=== PATIENT | female | born 1955 | race Caucasian/White ===

== ENCOUNTER → 2019-02-08 11:07 | Outpatient (BNVA) | payer SELFPAY | PROVIDERS: PCP Nurse Practitioner Family; Visit Provider Nurse Practitioner Family | DX: I10 Essential (primary) hypertension (principal); Z68.29 Body mass index [BMI] 29.0-29.9, adult | CPT/HCPCS: 80053; 80061; 84439; 84443 ==

== ENCOUNTER → 2019-02-15 09:29 | Outpatient (BNVA) | payer OTHER, SELFPAY | PROVIDERS: PCP Nurse Practitioner Family; Visit Provider Family Medicine | DX: I10 Essential (primary) hypertension (principal) | CPT/HCPCS: 80053; 80061; 84439; 84443 ==

== ENCOUNTER 2024-12-15 08:14 | Emergency (ER) | payer MEDICARE, OTHER, SELFPAY ==
--- OUTSIDE RECORDS SUMMARY | 2024-12-15 08:22 | XMS_ITS | Patient Health Record ---
Author Organization [facility] Address [address] [place] [address] Care Team Providers Care Leasing Property Manager Name Role Phone Elizabeth Huerta Primary Care Provider ELIZABETH HUERTA Unavailable Unavailable Doris Rouse Unavailable [phone] Ian Smith Unavailable [phone] Allergies Allergen (clinical drug ingredient) Drug/Non Drug Allergy documented on EMR Reaction Allergy Type Onset Date Status No Known Drug Allergy Unknown Drug Allergy Active Results Component Value Reference Range Flag Notes Lipid Panel Reflex DLDL 8702 1, 36039 Reviewed date:08/22/2024 01:02:00 PM Interpretation: Performing Lab: Notes/Report: Diagnosis Description: Hyperlipidemia, unspecified Trig 105 NA Adults: >20yrs Children: Male 5-9 yr 32-105 10-14 yr 32-125 High 200-499 Desirable <150 0-4 yr 22-99 10-14 yr 37-131 15-19 yr 37-148 Classification Guidelines:Triglyceride s Borderline High 150-199 Very high >=500 0-4 yr 34-112 5-9 yr 30-101 15-19 yr 39-132 Children: Female Chol 174 <=200 MG/DL HDL 56 39-96 MG/DL 15-19y 30-63 5-9y 36-73 >=20y 40-59 Reference Ranges:HDL 10-14y 37-74 10-14y 37-70 >=20y 40-59 Male: Female: 15-19y 35-74 5-9y 38-75 CH/HDL 3.1 0.0-4.9 RATIO LDL 97 0-130 MG/DL LDL result is inaccurate , if Trig is >400 mg/dl. See DLDL result. Comprehensive Metabolic Pane l ([facility]) [id number] Reviewed date:08/22/2024 01:01:31 PM Interpretation: Performing Lab: Notes/Report: Diagnosis Description: Essential (primary) hypertension Glucose Serum 85 71-110 MG/DL Testing p erformed at [facility], [address] [place] [address] [place] [address]. CLIA ID#: [id number] BUN 13 7-21 MG/DL Creat .66 .51-1.17 MG/DL Use of this assay is not recommended for patients undergoing treatment with phenindione, due to the potential for falsely depressed results. V-kqxgab-j-benzoquinon e imine (NAPQI) is a metabolite of acetaminophen, NAPQI concentrations of apparoximately 10 mg/L correlation to toxic levels of acetaminophen demonstrates a greater than or equil to 10% change in results. NAPQI concentrations greater than this may lead to falsely depressed results for patient samples. GFR 96.1 NA Calculation pe rformed from GFR calculator provided by the [employer]. Glomerular Filtration rate(GRF) is the best overall index of kidney function. Normal GFR varies according to age,sex, body size, and declines with age. The National [employer] recommends using the CKD-EPI Creatinine Equation(2020) to estimate GFR. BUN/Creat Ratio 19.7 12.0-20.0 % Total Protein 7.0 5.8-8.0 G/DL Albumin 5.0 3.2-4.8 G/DL HI Globulin 2.0 2.3-3.5 G/DL LOW Alb/Glob 2.5 0.8-2.2 HI Calcium 10.2 8.7-10.4 MG/DL Sodium 141 136-145 MMOL/L Potassium 4.1 3.5-5.1 MMOL/L Chloride 104 98-107 MMOL/L CO2 27.4 20.0-31.0 MMOL/L Anion Gap 14 5-15 Alk Phos 60 46-116 Bili Total .5 .3-1.2 MG/DL Use of this assay is not recommended for patients undergoing treatment with eltrombopag due to the potential for falsely elevated results. AST/SGOT 25 15-37 UNIT/L ALT/SGPT 28 12-78 UNIT/L Osmo Serum,Calculated 291 280-300 MOSM/KG Mammogram Screen Edmond Ru w/ [id number] Reviewed date:03/26/2024 10:59:07 AM Interpretation: Performing Lab: Notes/Report: See Below For Report Mammogram Screen Edmond Ru w/CAD Diagnosis Description: Encounter for screening mammogram for malignant neoplasm of breast Read See Below For Report Comprehensive Metabolic Pane l (CMP) [id number] Reviewed date:03/08/2024 10:26:51 AM Interpretation: Performing Lab: Notes/Report: Diagnosis Description: Essential (primary) hypertension Glucose Serum 96 71-110 MG/DL Testing p erformed at [facility], [address] [place] [address] [place] [address]. CLIA ID#: [id number] BUN 18 7-21 MG/DL Creat .59 .51-1.17 MG/DL G-uhgekw-s-benzoquinon e imine (NAPQI) is a metabolite of acetaminophen, NAPQI concentrations of apparoximately 10 mg/L correlation to toxic levels of acetaminophen demonstrates a greater than or equil to 10% change in results. NAPQI concentrations greater than this may lead to falsely depressed results for patient samples. Use of this assay is not recommended for patients undergoing treatment with phenindione, due to the potential for falsely depressed results. GFR 99.0 NA Calculation pe rformed from GFR calculator provided by the [employer]. Glomerular Filtration rate(GRF) is the best overall index of kidney function. Normal GFR varies according to age,sex, body size, and declines with age. The National [employer] Foundation recommends using the CKD-EPI Creatinine Equation(2020) to estimate GFR. BUN/Creat Ratio 30.5 12.0-20.0 % HI Total Protein 7.0 5.8-8.0 G/DL Albumin 4.8 3.2-4.8 G/DL Globulin 2.2 2.3-3.5 G/DL LOW Alb/Glob 2.2 0.8-2.2 Calcium 10.0 8.7-10.4 MG/DL Sodium 138 136-145 MMOL/L Potassium 4.1 3.5-5.1 MMOL/L Chloride 102 98-107 MMOL/L CO2 24.9 20.0-31.0 MMOL/L Anion Gap 15 5-15 Alk Phos 60 46-116 Bili Total .4 .3-1.2 MG/DL Use of this assay is not recommended for patients undergoing treatment with eltrombopag due to the potential for falsely elevated results. AST/SGOT 18 15-37 UNIT/L ALT/SGPT 22 12-78 UNIT/L Osmo Serum,Calculated 288 280-300 MOSM/KG Schedule Confirmation Reviewed date:03/19/2024 12:14:21 PM Interpretation: Performing Lab: Notes/Report: Mammogram Screen Edmond Ru w/CAD Schedule Confirmation Reviewed date:03/07/2024 02:44:06 PM Interpretation: Performing Lab: Notes/Report: Mammogram Screen Edmond Ru w/CAD CBC w\ Auto Diff [id number] Reviewed date:03/08/2024 10:26:51 AM Interpretation: Performing Lab: Notes/Report: Diagnosis Description: Essential (primary) hypertension WBC 6.4 4.5-11.0 X10'3 RBC 4.43 4.00-5.20 X10'6 Hgb 13.3 12.0-16.0 G/DL Hct 40.7 36.0-46.0 % MCV 91.9 80.0-100.0 FL MCH 30.0 27.0-31.0 PG MCHC 32.7 31.0-37.0 G/DL Platelet 328 150-400 X10'3 RDW-SD 41.9 35.0-49.0 FL RDW-CV 12.3 12.2-15.6 % MPV 10.1 9.2-12.0 FL Neutro Auto% 49.4 40.0-70.0 % Lymph Auto% 32.2 22.0-44.0 % [place] Auto% 11.1 3.0-7.0 % HI Eos Auto% 5.8 2.0-4.0 % HI Baso Auto% 1.3 0.0-1.0 % HI Imm Gran% .2 .0-.4 % Neutro Abs 3.16 .80-7.70 Absolute Neutrophil Count 3160 NA Lymph Abs 2.06 .10-4.10 [place] Abs .71 .20-1.00 Eos Abs .37 .00-.40 Baso Abs .08 .00-.20 Imm Gran Abs .01 .00-.10 NRBC# .00 .00-.20 X10'3 NRBC% .00 .00-.20 /100 intact WBC's T3 Free [id number] Reviewed date:03/08/2024 10:26:52 AM Interpretation: Performing Lab: Notes/Report: Diagnosis Description: Chronic fatigue, unspecified Free T3 3.4 2.3-4.2 pg/mL T4 [id number] Reviewed date:03/08/2024 10:26:52 AM Interpretation: Performing Lab: Notes/Report: Diagnosis Description: Chronic fatigue, unspecified Free T4 0.99 0.89-1.76 NG/DL Thyroid Stimulating Hormone (TSH) [id number] Reviewed date:03/08/2024 10:26:51 AM Interpretation: Performing Lab: Notes/Report: Diagnosis Description: Chronic fatigue, unspecified TSH 1.825 .358-3.740 MlU/ML Mammogram Screen Edmond Ru w/ [id number] Reviewed date:03/21/2024 04:01:00 PM Interpretation: Performing Lab: Notes/Report: cqz=[id number]&org=iSite CBC w\ Auto Diff [id number] Reviewed date:08/22/2024 01:02:38 PM Interpretation: Performing Lab: Notes/Report: Diagnosis Description: Encounter for general adult medical examination without abnormal findings Diagnosis Description: Essential (primary) hypertension WBC 6.0 4.5-11.0 X10'3 RBC 4.56 4.00-5.20 X10'6 Hgb 13.6 12.0-16.0 G/DL Hct 43.3 36.0-46.0 % MCV 95.0 80.0-100.0 FL MCH 29.8 27.0-31.0 PG MCHC 31.4 31.0-37.0 G/DL Platelet 343 150-400 X10'3 RDW-SD 42.0 35.0-49.0 FL RDW-CV 12.1 12.2-15.6 % LOW MPV 10.0 9.2-12.0 FL Neutro Auto% 55.2 40.0-70.0 % Lymph Auto% 26.5 22.0-44.0 % [place] Auto% 10.3 3.0-7.0 % HI Eos Auto% 6.2 2.0-4.0 % HI Baso Auto% 1.5 0.0-1.0 % HI Imm Gran% .3 .0-.4 % Neutro Abs 3.31 .80-7.70 Absolute Neutrophil Count 3310 NA Lymph Abs 1.59 .10-4.10 [place] Abs .62 .20-1.00 Eos Abs .37 .00-.40 Baso Abs .09 .00-.20 Imm Gran Abs .02 .00-.10 NRBC# .00 .00-.20 X10'3 NRBC% .00 .00-.20 /100 intact WBC's Reason For Referral Reason Referral to Oscar with podiatry. Diagnosis 1 Right foot pain (M79 .671) Referral Organization [facility] Referring Provider First Name Elizabeth Referring Provider Last Name Geraldine Referring Provider [facility] ximena Referred Provider Kamari Moore Jr Referred Provider Specialty Podiatry Referral Priority Routine Medications Medication SIG (Take, Route, Frequency, Duration) Notes Start Date End Date Status Pravastatin Sodium 20 mg Tablet TAKE ONE TABLET BY MOUTH ONCE DAILY; Duration: 90 days Active Pantoprazole Sodium 40 MG Tablet Delayed Release 1 tablet Orally Once a day; Duration: 30 days Active Multivitamin Adult - Tablet as directed Orally Active Lisinopril 10 mg Tablet TAKE ONE TABLET BY MOUTH ONCE DAILY; Duration: 90 Active Aspirin 81 81 MG Tablet Delayed Release 1 tablet Orally Once a day Active Immunizations Vaccine Route Administration Date Status Comme nts Flucelvax Quadrivalent Pres Free Unknown 12/15/2021 Ref used Flucelvax Quadrivalent Pres Free Unknown 03/28/2023 Ref used COVID-19 Vaccine (Moderna) Dose #2 Unknown 06/18/2020 A dministered COVID-19 Vaccine (Moderna) Dose #1 Unknown 05/21/2020 A dministered Prevnar 20 Unknown 03/28/2023 Refused Prevnar 20 Unknown 08/20/2024 Refused Social History Tobacco Use: Social History Observation Description Date Details (start date - stop date) Former Smoker 02/07/1975 - 02/08/2004 Social History Depression Screening Social Info Question Answer Notes PHQ-9 Little interest or pleasure in doing thin gs Not at all Feeling down, depressed, or hopeless Not at all Trouble falling or staying asleep, or sleeping t oo much Not at all Feeling tired or having little energy Not at all Poor appetite or overeating Not at all Feeling bad about yourself, or that you are a failure, or have let yourself or your family down Not at all Trouble concentrating on thi ngs, such as reading the newspaper or watching television Not at all Moving or speaking so slowly that other people could have noticed. Or the opposite ? being so fidgety or restless that you have been moving around a lot more than usual Not at all Thoughts that you would be b ria off , or of hurting yourself in some way Not at all Total Score 0 Drugs/Alcohol: Social Info Question Answer Notes Caffeine Intake: none Comprehensive Health Assessm ent Social Info Question Answer Notes Advance Care Planning Advance care planning Pamphlet given and reviewed with patient. *Social Determinants of Health Have you recently been concerned that your utilities would be turned off (electricity, gas, or water)? No Has lack of transportation k ept you from medical appointments, meetings, work or from getting things needed for daily living? No Recently, have you worried t hat your food would run out before you got money to buy more? No Do you feel physically and emotionally safe wher e you currently live? Yes Are you worried about losing your housing? No Drug/Alcohol: Social Info Question Answer Notes AUDIT-C (Standard) Did you have a drink containing alcohol in the past year? Yes How often did you have a drink containing alcohol in the past year? 2 to 4 times a month (2 points) How many drinks did you have on a typical day when you were drinking in the past year? 1 or 2 drinks (0 point) How often did you have six or more drinks on one occasion in the past year? Never (0 point) Points 2 Interpretation Negative Tobacco Use: Social Info Question Answer Notes Tobacco Control (Standard) When did you start smoking? 02/07/1975 When did you stop smoking? 02/08/2004 How long has it been since you last smoked? Greater than 10 years Tobacco use: Former smoker xTobacco Use/Smoking Are you a former smoker How long has it been since you last smoked? > 10 years Additional Details Category Social Info Options Details Drugs/Alcohol: Do you smoke marijuana? De nies Do you drink alcohol? , Socially zzMigrated Social History Drugs/Alcohol: (Alcohol Screen (Audit-C)):Did you have a drink containing alcohol in the past year?: Yes, How often did you have a drink containing alcohol in the past year?: 2 to 4 times a month (2 points), Points: 2, Interpretation: Negative ;(Caffeine):Intake: 2-3 cups per day ; Tobacco Use: (Tobacco Use/Smoking):Are you a:: former smoker , When did you stop smoking?: 2003 ; Section Notes: quit feb 2004 smoked for 20 years less than 1/2 pack daily reports social alcohol, reports limited caffeine quit feb 2004 smoked for 20 years less than 1/2 pack daily reports social alcohol, reports limited caffeine quit 16 yrs ago smoked for 2 0 years less than 1/2 pack daily quit feb 2004 smoked for 20 years less than 1/2 pack daily reports social alcohol, reports limited caffeine quit feb 2004 smoked for 20 years less than 1/2 pack daily reports social alcohol, reports limited caffeine quit feb 2004 smoked for 20 years less than 1/2 pack daily quit feb 2004 smoked for 20 years less than 1/2 pack daily reports social alcohol, reports limited caffeine quit feb 2004 smoked for 20 years less than 1/2 pack daily reports social alcohol, reports limited caffeine quit feb 2004 smoked for 20 years less than 1/2 pack daily reports social alcohol, reports limited caffeine quit feb 2004 smoked for 20 years less than 1/2 pack daily reports social alcohol, reports limited caffeine quit feb 2004 smoked for 20 years less than 1/2 pack daily reports social alcohol, reports limited caffeine quit feb 2004 smoked for 20 years less than 1/2 pack daily reports social alcohol, reports limited caffeine quit feb 2004 smoked for 20 years less than 1/2 pack daily reports social alcohol, reports limited caffeine quit feb 2004 smoked for 20 years less than 1/2 pack daily reports social alcohol, reports limited caffeine Problems Problem Type SNOMED Code ICD Code Onset Dates Problem Status W/U Status Risk Notes Problem Diverticular disease of colon (040417344) Diverticulosis of large intestine without perforation or abscess without bleeding (K57.30) Active confirmed Problem Chronic fatigue syndrome (53828685) Chronic fatigue (R53.82) Active confirmed Problem Obesity (346761753) Obesity (BMI 30-39.9) (E66.9) Active confirmed Problem Murmur (632090494) Murmur (R01.1) Active confir med Problem Seasonal allergy (865766536) Seasonal allergies (J30.2) Active confirmed Problem Hyperlipidemia (28173847) Hyperlipidemia (E78.5) Active confirmed Problem Heart valve regurgitation (disorder) (40383131) Leaky heart valve (I38) Active confirmed Problem Non-rheumatic mitral regurgitation (693631005) Nonrheumatic mitral valve regurgitation (I34.0) Active confirmed Problem Coronary arteriosclerosis (13502129) Coronary arteriosclerosis (I25.10) Active confirmed Problem Essential hypertension (41052531) Essential hypertension (I10) Active confirmed Problem Overactive bladder (194649377) Overactive bladder (N32.81) Active confirmed Vital Signs Heart Rate 84 /min 09/11/2024 Temperature 97.3 degrees Fahrenheit 09/11/2024 Respiratory Rate 16 /min 08/20/2024 Blood pressure diastolic 72 mm Hg 09/11/2024 Oximetry 97 % 09/11/2024 Height-cm 154.94 cm 09/11/2024 Weight-kg 76.2 kg 09/11/2024 Height 61 in 09/11/2024 Blood pressure systolic 120 mm Hg 09/11/2024 Weight 168 lbs 09/11/2024 BMI 31.74 kg/m2 09/11/2024 Encounters Encounter Location Date Provider Diagnosis [address] [place] [address] 08/20/2024 Elizabeth Huerta Encounter for Medica re annual wellness exam Z00.00 ; ACP (advance care planning) Z71.89 ; Depression screening Z13.31 ; Essential hypertension I10 ; Hyperlipidemia E78.5 ; Encounter for immunization Z23 ; Immunization not carried out because of patient refusal Z28.21 ; Murmur R01.1 ; Leaky heart valve I38 ; Nonrheumatic mitral valve regurgitation I34.0 ; Coronary arteriosclerosis I25.10 ; Obesity (BMI 30-39.9) E66.9 ; Seasonal allergies J30.2 and Diverticulosis of large intestine without perforation or abscess without bleeding K57.[address] [place] [address] 09/11/2024 [place] [facility] externum o f left lower eyelid H00.[address] [place] [address] 03/06/2024 Elizabeth Huerta Essential hypertensi on I10 ; Screening mammogram for breast cancer Z12.31 ; Palpitation R00.2 ; Right foot pain M79.671 and Chronic fatigue R53.82 [facility] [address] [place] [id number] 06/04/2024 Ian Smith Palpitations R00.2 ; Essential hypertension I10 ; Nonrheumatic mitral valve regurgitation I34.0 ; Hyperlipidemia E78.5 and Elevated coronary artery calcium score R93.1 Assessments Encounter Date Diagnosis (ICD Code) Assessment Notes Treatment Notes Treatment Clinical Notes Section Notes 03/06/2024 Essential hypertension (ICD-10 - I10) Patient has longstanding hypertension that has remained well controlled on current treatment regimen. Patient is tolerating the medication well and without adverse effects. Goal BP <140/90. Warning signs of blood pressure elevation discussed and return/ED precautions given. All of patient's questions were encouraged and addressed to their apparent satisfaction. Patient agreeable with POC. 03/06/2024 Screening mammogram for breast cancer (ICD-10 - Z12.31) Mammogram ordered today. 06/04/2024 Palpitations (ICD-10 - R00.2) 08/20/2024 Encounter for Medicare annual wellness exam (ICD-10 - Z00.00) Medicare Annual Wellness visit was completed today. Diagnosis reconciliation preformed. Health History reviewed and documented. Screening examinations were reviewed as appropriate. Routine health and wellness precautions were discussed. Recommendations for preventative services as indicated and documented. Medicare Annual Wellness was completed today by myself and Tanner Perez RN. Advanced care Planning discussed and pamphlet given. Please schedule your next AWV in 1 year. 09/11/2024 Hordeolum externum of left lower eyelid (ICD-10 - H00.015) Patient appears to have a benign lesion, appears as a stye that is contributing to her symptoms. I have advised on use of systane eye drops and cold compresses with tylenol for relief. Provided reassurance this is benign and shoudl heal and resolve in the next 1-2 weeks. Provided other options for her to see eye doctor at [facility] or [facility] eye clinic for possibly a sooner appt. 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 08/20/2024 ACP (advance care planning) (ICD-10 - Z71.89) Advance care planning discussed with pt today. 03/06/2024 Palpitation (ICD-10 - R00.2) Patient reports feeling her heart flutters. She states these do not feel like palpitations. Patient states the flutter happens more often when she is not busy. Patient states at times she experiences a headache associated with the flutter. Patient has not seen Cardiology in over a year. Patient has had a holter monitor in the past, however, recommended a 7 day holter. 06/04/2024 Essential hypertension (ICD-10 - I10) 06/04/2024 Nonrheumatic mitral valve regurgitation (ICD-10 - I34.0) 03/06/2024 Right foot pain (ICD-10 - M79.671) Patient reports experiencing pain in her right foot. She denies any injury. No discoloration or adnormalities noted upon exam. Patient describes the pain as cramping. Today patient will be referred to Dr. Mello for further evaluation. 06/04/2024 Hyperlipidemia (ICD-10 - E78.5) 08/20/2024 Depression screening (ICD-10 - Z13.31) PHQ9 obtained today. 08/20/2024 Essential hypertension (ICD-10 - I10) Patient has longstanding hypertension that has remained well controlled on current treatment regimen. Patient is tolerating the medication well and without adverse effects. Goal BP <140/90. Warning signs of blood pressure elevation discussed and return/ED precautions given. All of patient's questions were encouraged and addressed to their apparent satisfaction. Patient agreeable with POC. 06/04/2024 Elevated coronary artery calcium score (ICD-10 - R93.1) 03/06/2024 Chronic fatigue (ICD-10 - R53.82) Patient has been tired and weak recently, patient has a family hx of thyroid problems. Patient will have lab work drawn today including a TSH, patient will be called with the results once they are recieved and reviewed. Any changes will be made over the phone. She will follow up at her next scheduled appointment. 08/20/2024 Hyperlipidemia (ICD-10 - E78.5) Will check fasting lipid panel. Any adjustments will be made over the phone. 08/20/2024 Encounter for immunization (ICD-10 - Z23) 08/20/2024 Immunization not carried out because of patient refusal (ICD-10 - Z28.21) Patient declined. 08/20/2024 Murmur (ICD-10 - R01.1) Follows with Cardiology. 08/20/2024 Leaky heart valve (ICD-10 - I38) Follows with Cardiology. 08/20/2024 Nonrheumatic mitral valve regurgitation (ICD-10 - I34.0) Follows with Cardiology. 08/20/2024 Coronary arteriosclerosis (ICD-10 - I25.10) Follows with Cardiology. 08/20/2024 Obesity (BMI 30-39.9) (ICD-10 - E66.9) Patient with an elevated BMI. Educated on weight loss and healthy lifestyle changes provided today. Patient educated on the importance of focusing on protein and healthy complex carbs. Recommended 150 minutes of exercise/week as tolerated. Patient verbalized understanding. Discussed and offered other weight loss options. 08/20/2024 Seasonal allergies (ICD-10 - J30.2) 08/20/2024 Diverticulosis of large intestine without perforation or abscess without bleeding (ICD-10 - K57.30) 03/06/2024 Other All patient's questions are encouraged and addressed to their apparent satisfaction. They are agreeable with the proposed plan of care and deny further needs or concerns. I am happy to see patient prior to next office visit as needed for acute concerns. I, Radha Paige MA, am serving as a scribe to document services personally performed by Elizabeth Huerta MD based on my observation and the provider's statement to me. I, Elizabeth Huerta MD, attest that Radha Paige MA is acting in a scribe capacity, has observed my performance of the services, and has documented them in accordance with my direction. The information recorded by the scribe is complete and accurate. 06/04/2024 Other Since she is no t having any symptoms or palpitations at this point, she will RTC in 6 months w/ Iva Lowell RUELAS. She is to call us if she is having any recurrent palpitations, so we can get a Holter monitor on her. I, Fay Rodríguez, am scribing for and in the presence of Dr. Ian Smith. I, Dr. Ian Smith, personally performed the services described in this documentation , as scribed by Fay Rodríguez in my presence, and is both accurate and complete. 08/20/2024 Other All patient's questions are encouraged and addressed to their apparent satisfaction. They are agreeable with the proposed plan of care and deny further needs or concerns. I am happy to see patient prior to next office visit as needed for acute concerns. I, Radha Paige MA, am serving as a scribe to document services personally performed by Elizabeth Huerta MD based on my observation and the provider's statement to me. I, Elizabeth Huerta MD, attest that Radha Paige MA is acting in a scribe capacity, has observed my performance of the services, and has documented them in accordance with my direction. The information recorded by the scribe is complete and accurate. 09/11/2024 Other [employer] speech recognition software has been utilized in the dictation of this note. Occasionally, typographical errors may be identified even after routine proofreading. For any questions, please contact our office and we will be happy to address these to the best of our ability. All of patient's questions are encouraged and addressed to their apparent satisfaction. They are agreeable with the proposed plan of care and denies further needs or concerns. I am happy to see patient prior to next office visit as needed for acute concerns. Plan Of Treatment Pending Test Test Name Order Date Echo Complete [id number] 03/31/2021 zzzMammogram Screening Bilateral Imp w/C [id number] 03/08/2019 zzzMammogram Screening Bilateral Imp w/C [id number] 03/16/2019 Stress Test, [id number] 03/31/2021 Next Appt Details Provider Name:Soniya hernandez, 12/18/2024 09:00:00 AM, [address] [place] [address], [id number], Insurance Providers Payer Name Payer Address Payer Phone Subscriber Number Group Number Insured Name Patient Relationship to Insured Coverage Start Date Coverage End Date [place] [address] [place] [phone] [id number] LILIYA MITCHELL Self - patient is the insured [facility] [address] [place] [phone] [id number] LILIYA MITCHELL Self - patient is the insured Medical (General) History Medical History History ICD Code Arthritis Chronic bladder infections Heart valve disease, mitral valve Hypertension Coronary artery disease Covid vaccine - yes Surgical History Surgery Date(Month/Year) lumpectomy (right breast) benign 2000 Hospitalization History Reason Date(Month/Year)
--- OUTSIDE RECORDS SUMMARY | 2024-12-15 08:22 | XMS_ITS | Patient Health Record ---
Author Organization [facility] Address [address] [place], [place] [id number] Care Team Providers Care Language Arts Teacher Name Role Phone Elizabeth Chandler Primary Care Provider Unavailab Kamari Byrd Jr [phone] Allergies No Known Allergies Reason For Referral No Information Medications Medication SIG (Take, Route, Frequency, Duration) Notes Start Date End Date Status Pravastatin Sodium 20 MG TAKE ONE TABLET BY MOUTH ONCE DAILY Oral; Duration: 90 Days Active Lisinopril 10 MG Oral; Duration: 90 Days Active Social History Tobacco Use: Social History Observation Description Date Details (start date - stop date) Never Smoker NA - NA Tobacco Control (Standard) Question Answer Notes Tobacco use: Nonsmoker Problems Problem Type SNOMED Code ICD Code Onset Dates Problem Status W/U Status Risk Notes Problem Acquired hammer toe of right foot (0469656835322 105) Other hammer toe(s) (acquired), right foot (M20.41) Active confirmed Problem Hallux valgus of right foot (3063869529) Hallux valgus of right foot (M20.11) Active confirmed Problem Arthritis of right foot (8614995240647 104) Arthritis of right foot (M19.071) Active confirmed Vital Signs Respiratory Rate 20 /min 04/18/2024 Height 62 in 04/18/2024 Weight 157 lbs 04/18/2024 BMI 28.71 kg/m2 04/18/2024 Encounters Encounter Location Date Provider Diagnosis [facility] [address] [facility], [place] [id number] 03/21/2024 Kamari Moore Jr Hallux valgus of right foot M20.11 ; Other hammer toe(s) (acquired), right foot M20.41 ; Arthritis of right foot M19.071 and Pain in right foot M79.671 [facility] [address] [place], [place] [id number] 04/18/2024 Kamari Moore Jr Hallux valgus of right foot M20.11 ; Other hammer toe(s) (acquired), right foot M20.41 ; Arthritis of right foot M19.071 and Pain in right foot M79.671 Assessments Encounter Date Diagnosis (ICD Code) Assessment Notes Treatment Notes Treatment Clinical Notes Section Notes 03/21/2024 Other hammer toe(s) (acquired), right foot (ICD-10 - M20.41) 03/21/2024 Hallux valgus of right foot (ICD-10 - M20.11) 04/18/2024 Other hammer toe(s) (acquired), right foot (ICD-10 - M20.41) 04/18/2024 Hallux valgus of right foot (ICD-10 - M20.11) 04/18/2024 Arthritis of right foot (ICD-10 - M19.071) Discussed treatment, risks and complications. Again discussed treatment in detail with the patient, including shoes, inserts, icing, anti-inflammatory medications, injections, padding and offloading and laser therapy. Continue with the betterforms and taping. Discussed custom orthotics. She will consider. Discussed surgical intervention in detail with the patient, including risks, complications and post operative care. 03/21/2024 Arthritis of right foot (ICD-10 - M19.071) Discussed treatment, risks and complications. Radiographs taken, evaluated and discussed with the patient. Discussed treatment in detail with the patient, including shoes, inserts, icing, anti-inflammatory medications, injections, padding and offloading. Low dye taping performed on the right foot with instructions on proper application. Dispensed betterform inserts to the patient. 03/21/2024 Pain in right foot (ICD-10 - M79.671) 04/18/2024 Pain in right foot (ICD-10 - M79.671) Plan Of Treatment No Information Insurance Providers Payer Name Payer Address Payer Phone Subscriber Number Group Number Insured Name Patient Relationship to Insured Coverage Start Date Coverage End Date Medicare of [place] [address] [place] [phone] [id number] LILIYA MITCHELL Self - patient is the insured [address] [id number] LILIYA MITCHELL Self - patient is the insured Medical (General) History Medical History History ICD Code High Blood Pressure Surgical History Surgery Date(Month/Year) BREAST SURGERY
[2024-12-15 08:26] VITALS: BP 149/70; PULSE 67; RESP 18; TEMP 36.8; O2SAT 100; BMI 29.2
[2024-12-15 08:45] LABS: Glucose Urine UA Negative (Normal); Nitrate Urine Negative (Negative); Specific Gravity, Urine 1.016 (1.005-1.030)
--- NOTE | 2024-12-15 09:17 | W.ED.FEMALGU ---
HPI - Female Genitourinary General: Chief complaint: Urogenital-Female Stated complaint: Burning when peeing pressure and pee Time Seen by Provider: 12/15/24 08:15 History of Present Illness: 69-year-old female past medical history significant for hypertension on lisinopril, otherwise generally healthy presenting to the emergency department with 1 day history of burning upon urination and incomplete bladder emptying sensation and pressure sensation in her lower abdomen, feels similar to prior UTIs she has had although it has been several years since her last UTI, recently returned from a trip to [place], no specific risk factors identified during that trip, no fevers, no back or flank pain, no vaginal discharge, took cranberry juice with minimal improvement of symptoms but no resolution. Related Data Previous Rx's ?Medication ?Instructions ?Recorded lisinopril 10 mg tablet 10 mg PO BID #30 tabs 02/16/19 nitrofurantoin 100 mg PO BID 7 days #14 caps 12/15/24 monohydrate/macrocrystals 100 mg capsule (Macrobid) phenazopyridine 200 mg tablet 200 mg PO TID PRN pain 6 doses #6 12/15/24 (Pyridium) tabs Allergies Allergy/AdvReac Type Severity Reaction Status Date / Time No Known Allergies Allergy Verified 02/08/19 11:22 [facility] ED PFSH: Medical History Hypertension Social History Smoking and tobacco/nicotine status: former use of tobacco/nicotine Quit status (tobacco/nicotine): has quit using Former quit date comment: 15 years ago Alcohol intake: current Alcohol intake frequency: holidays/special occasions only Substance/Drug Use: never Physical Exam Narrative: EXAM NARRATIVE: Gen: A&Ox4, no acute distress, nontoxic appearing HEENT: Normocephalic, atraumatic, no scleral icterus, external ears normal, moist mucous membranes Neck: Supple, full range of motion, no observable masses Lungs: No Respiratory distress, Lungs clear to auscultation bilaterally no rales, rhonchi, wheezing CV: Regular rate and rhythm, no murmur, no pitting edema to lower extremities bilaterally Abdomen: Soft, nondistended, nontender to palpation MSK: No joint swelling, FROM all 4 extremities Skin: No rashes, petechiae, lesions. Normal color per patient. Neuro: Alert and oriented, no slurred speech, sensation and strength grossly intact all 4 extremities Psych: Appropriate for situation. Course Vital Signs: Vital signs: Vital Signs Temperature 98.2 F 12/15/24 08:26 Pulse Rate 67 12/15/24 08:26 Respiratory Rate 18 12/15/24 08:26 Blood Pressure 149/70 12/15/24 08:26 Pulse Oximetry 100 12/15/24 08:26 Oxygen Delivery Me thod Room Air 12/15/24 08:26 MDM - Female Medical Decision Making 69-year-old generally healthy female with a history of hypertension presenting the emergency department with 1 day history of urinary irritative symptoms including burning dysuria, sensation of incomplete bladder emptying, urinary urgency/hesitancy as well as pressure sensation to her bladder region, no associated fever no back or flank pain, well-appearing, normal vitals, benign physical exam, urinalysis showing white blood cells and leuk esterase but no visible bacteria, however given the symptoms are highly consistent with UTI and there is white blood cells in the urine I will treat empirically for acute cystitis, recommend Pyridium for bladder spasm control, return precautions, stable for discharge with PCP follow-up and urine culture follow-up for confirmation. At this time I have no clinical concern for surgical intra-abdominal pathology such as appendicitis or diverticulitis, very low concern for kidney stone, no concern for PID or vaginitis. Lab Data Urinalysis with significant white cells in the urine and leuk esterase, no nitrates or bacteria, no significant blood Laboratory Results Urine Color Yellow (Yellow) 12/15/24 08:39 Urine Appearance Clear (CLEAR) 12/15/24 08:39 Urine pH 7.0 (5-7) 12/15/24 08:39 Ur Specific [place] 1.016 (1.005-1.030) 12/15/24 08:39 Urine Protein Negative (Negative) 12/15/24 08:39 Urine Glucose (UA) Negative (Normal) 12/15/24 08:39 Urine Ketones Negative (Negative) 12/15/24 08:39 Urine Blood Negative (Negative) 12/15/24 08:39 Urine Nitrate Negative (Negative) 12/15/24 08:39 Urine Bilirubin Negative (Negative) 12/15/24 08:39 Urine Urobilinogen 1.0 mg/dL (Negative) 12/15/24 08:39 Ur Leukocyte Esterase 2+ (Negative) A 12/15/24 08:39 Urine RBC 6-10 /hpf (0-2) 12/15/24 08:39 Urine WBC 51-100 /hpf (0-5) H 12/15/24 08:39 Ur Squamous Epith Cells 0-5 /hpf (0-5) 12/15/24 08:39 Amorphous Sediment Not Reportable 12/15/24 08:39 Urine Bacteria None seen /hpf (NONE) 12/15/24 08:39 Hyaline Casts 0.40 /lpf 12/15/24 08:39 No radiology studies performed this visit Discharge Plan Discharge Patient Disposition: Home Clinical Impression: Cystitis Condition: Stable Prescriptions: New nitrofurantoin monohyd/m-cryst [Macrobid] 100 mg capsule 100 mg PO BID 7 Days Qty: 14 0RF Rx Instructions: must administer with a meal/food phenazopyridine [Pyridium] 200 mg tablet 200 mg PO TID PRN (Reason: pain) Qty: 6 0RF No Action lisinopril 10 mg tablet 10 mg PO BID Qty: 30 0RF Discharge Orders: Discharge ED (Routine); Ordered 12/15/24 Ordered By: Denzel Kaplan Referrals: Elizabeth Chandler MD [Primary Care Provider, Family Practice] Patient Instructions: Patient Portal & Deepa Instructions, Urinary Tract Infection in Women ([place]) Print Language: Cuban Coding Level of Care Code ED Electronic Game Developer for Adelaide Trejo
[2024-12-15 09:23] VITALS: BP 154/96; PULSE 68; O2SAT 99
== END 2024-12-15 09:26 | disposition home or self-care (01) ==
PROVIDERS: Emergency Provider Student in an Organized Health Care Education/Training Program; PCP Family Medicine
DX: N30.90 Cystitis, unspecified without hematuria (principal); Z87.891 Personal history of nicotine dependence; I10 Essential (primary) hypertension
CPT/HCPCS: 81001; 87086; 99283